=== PATIENT | female | born 1985 | race Caucasian/White ===

== ENCOUNTER → 2017-06-17 15:24 | Outpatient (CLI) | payer OTHER, SELFPAY | PROVIDERS: Visit Provider Otolaryngology Otolaryngology/Facial Plastic Surgery | DX: J02.9 Acute pharyngitis, unspecified (principal); H92.09 Otalgia, unspecified ear | CPT/HCPCS: 87070 ==

== ENCOUNTER → 2017-06-27 16:45 | Outpatient (CLI) | payer OTHER, SELFPAY ==
--- NOTE | 2017-06-27 16:47 | CT_ITS ---
STUDY: CT SOFT TISSUE NECK WITH CONTRAST REASON FOR EXAM: Female, 32 years old. Right ear pain and neck pain. RADIATION DOSAGE (If Supplied By Facility): CTDIvol = ( 11.15 ) mGy, DLP = ( 286.78 ) mGycm TECHNIQUE: The patient was scanned in a multi-detector CT scanner. High resolution transaxial imaging was performed following intravenous administration of 75 ml of Isovue 370 contrast material. Sagittal and coronal images were reconstructed. Individualized dose optimization techniques were used for this CT. COMPARISON: None. FINDINGS: Normal bilateral parotid glands. Normal bilateral switch repairer spaces. Normal bilateral parapharyngeal spaces. Normal bilateral carotid spaces. Normal bilateral sublingual and submandibular glands and spaces. Normal visualized nasopharynx. Normal retropharyngeal space. Normal perivertebral space. Normal visualized bilateral faucial tonsils. The visualized tongue, tongue base and oropharynx are normal. The visualized cervical lymph nodes (levels I-) are within normal size limits, and maintain normal morphology. There is no demonstrated solid or cystic mass lesion. There is no abnormal contrast enhancement. Normal epiglottis, bilateral vallecula and hypopharynx. The pre-epiglottic and paraglottic adipose spaces are normal. Normal visualized bilateral piriform sinuses, aryepiglottic folds, vocal cords, and arytenoid-cricoid articulations. Normal subglottic trachea. Normal bilateral lobes of the thyroid gland. Normal visualized pulmonary apices. Normal visualized paranasal sinuses. Normal visualized cervical spine. CT/Soft Tissue Neck WITH Contrast IMPRESSION: Normal enhanced CT examination of the soft tissues of the neck. Electronically Signed: Jatinder Crooks MD at 23:58 EDT , Service support ,
== END ==
PROVIDERS: Visit Provider Otolaryngology Otolaryngology/Facial Plastic Surgery
DX: M54.2 Cervicalgia (principal); H92.01 Otalgia, right ear
CPT/HCPCS: 70491; 70492; Q9967

== ENCOUNTER 2017-07-25 09:55 | Outpatient (RCR) | payer OTHER, SELFPAY ==
--- NOTE | 2017-08-21 19:47 | HP.PTEVAL_ITS ---
Patient's Visit Information MANUEL RAMOS is a 32 year old F referred to Physical Therapy by JAZZY GOLDSMITH with a diagnosis of Generalized weakness. Date of Evaluation: 07/25/17 Physical Therapist: Adán Zamorano - Visit Plan Frequency: 2x /Week Duration: 4 Weeks Plan: Start with neutral spine core strengthening, hip (glute, glute med, lumbar paraspinals, multifidus) to increase stability with all dynamic activities. - Subjective Subjective: Pt. is here today for her initial evaluation with diagnosis of generalized weakness with fibromyalsis. Pt. reports battling fibromyalsia for 3- 4 years now, but has had increased difficulty since her last child was born. Pt. reports having gereralized pain, througout bilateral LEs and lumbar spine. Pt. reports incerased pain upon waking up in the morning and worsens throughout the day. Pt.denies N/T and no sudden muscle weakness in LEs. Pt. reports no changes in B/B. Pt. has no recent xrays or imaging. Pt. is also having difficulty keeping up with hosehold chores and children due to fatigue. Pt. is hopeful to improve strength in order get back to all recreational and household activities without limitations. - Pain Lumbar spine Pain Intensity (Out of 10): 3 Pain Intensity Range: 1, 6 BLEs Pain Intensity (Out of 10): 2 Pain Intensity Range: 2, 6 Cervical spine Pain Intensity (Out of 10): 2 Pain Intensity Range: 2, 4 - Objective POSTURE: Pt. has rounded shoulders, FH posture, increased lumbar lordosis with anterior rotation pelvis. Increased flexion at CT juntion with increased upper cervical extension. PALPATION: Pt. has increased pain at CT junction, at lumbar spine paraspinals. NO pain througout BLEs with palpation. NEUROLOGICAL: Normal with sensation adn DTR throughout. Pt. myotomal weakness noted. ROM: CERVICAL SPINE: normal ROM, mild increase with ext. lumbar spine: Pt. has full ROM, with hyperextension noted. BLEs- hypermobility noted throughout. MMT: RLE - ankle/knee- 5/5 throughout; hip- flexion 4+/5, abd 4/5, ext 4+/5. LLE- ankle 5 /5 throughout, knee- 5/5 throughout; hip- flexion 4+/5, abd 4/5, ext 4/5. Core strenght- poor+. GAIT: normal pattern noted, STAIRS: normal pattern noted without increase in symptoms. - Goals Goal 1:: Pt. to be I with HEP. Goal Time Frame: 4-6 Weeks Goal 2:: Pt. to have increased BLE and core strength increased by 1/2 grade of all effected musculature. Goal Time Frame: 4-6 Weeks Goal 3:: Pt. to sleep throughout the night without increase in symptoms. Goal Time Frame: 4-6 Weeks Goal 4:: Pt. to resume all household work and recreational activities without increase in symptoms. Goal Time Frame: 4-6 Weeks Goal 5:: Pt. to maintain proper posture throughout therapy session indicating increased postural awareness. Goal Time Frame: 4-6 Weeks - Rehabilitation Potential Physical Therapy Diagnosis: Pt. has sigs and symptoms consistent with BLE, core weakness. Pt. is hypermobile with all BLEs and lumbar spine. Pt. has poor posture, most likely due to muscle/postural/core weakness. Pt. would benefit from PT to increase BLE/core strength to increase posture in all positions, reducing stress applied to lumbar spine/pelvis with all activities. Rehabilitation Potential: Good - Anticipated Interventions Patient/Client Instruction: Educate patient on: Condition, Plan of Care, Risk Factors, Benefits of Fitness Program For the Purpose of:: To foster healthy habits, To improve decision making, To facilitate caregiver knowledge, To improve self management, To prevent re-injury , To improve ability to perform tasks related to life management, To improve tolerance to ADL's Therapeutic Exercise to Include: Strength training, Power training, Body mechanics, Postural training, Active ROM, Dynamic Lumbar Stabilization, Patricia Exercises, Scapular Strength/Stabilization For the Purpose of:: To decrease pain, To increase ROM, To improve nutrient delivery to tissue, To increase oxygenation perfusion, To improve ability of physical actions for home/community/work/leisure, To improve health of tissue, To decrease soft tissue restriction, To increase flexibility/ROM Thank you for the opportunity to evaluate your patient. For Medicare and Medicare HMO plans, please review the plan of care and approve it. It will need to be FAXED BACK to us at [phone] for Medicare purposes. Please let me know if there are questions or concerns regarding this plan of care. Physician Signature: Date:
--- NOTE | 2017-12-15 11:28 | HP.PTDCNRP_ITS ---
HP - Discharge Summary (1) - Patient Information MANUEL RAMOS was seen in my office for initial evaluation on 07/25/17. The following Plan of Care was established for this patient: Initial Frequency: 2x /Week Initial Duration: 4 Weeks - Anticipated Interventions Patient/Client Instruction: Educate patient on: Condition, Plan of Care, Risk Factors, Benefits of Fitness Program For the Purpose of:: To foster healthy habits, To improve decision making, To facilitate caregiver knowledge, To improve self management, To prevent re- injury, To improve ability to perform tasks related to life management, To improve tolerance to ADL's Therapeutic Exercise to Include: Strength training, Power training, Body mechanics, Postural training, Active ROM, Dynamic Lumbar Stabilization, Patricia Exercises, Scapular Strength/Stabilization For the Purpose of:: To decrease pain, To increase ROM, To improve nutrient delivery to tissue, To increase oxygenation perfusion, To improve ability of physical actions for home/community/work/leisure, To improve health of tissue, To decrease soft tissue restriction, To increase flexibility/ROM This patient was last seen in our office 07/25/17. Pertinent comments regarding their Physical therapy will appear below: Pt. was treated for her generalized weakness and fibromyalsia. She was seen for her initial evaluation and given exercises for core/hip stability. Pt. did not attend any future visits. She has not been seen in ~4 months and will be DC from PT at this point in time. At this point I will be discontinuing this patient from physical therapy. I would be happy to see this patient again in the future if found appropriate by the physician. Thank you! Adán Zamorano
== END 2017-07-25 19:00 | disposition home or self-care (01) ==
LOC: PT 09:55
DX: R53.1 Weakness (principal)
CPT/HCPCS: 97162

== ENCOUNTER 2017-10-14 04:28 | Emergency (ER) | payer OTHER, SELFPAY ==
[2017-10-14 04:31] VITALS: BP 164/124; PULSE 96; RESP 20; TEMP 36.6; O2SAT 100; BMI 19.3
--- NOTE | 2017-10-14 05:03 | CT_ITS ---
STUDY: CT ABDOMEN AND PELVIS WITHOUT CONTRAST REASON FOR EXAM: Female, 32 years old. Left flank pain x2 days, worse tonight, nausea. History of kidney stones. RADIATION DOSAGE (If Supplied By Facility): CTDIvol = ( 6.17 ) mGy, DLP = ( 280.50 ) mGycm TECHNIQUE: Transaxial 2.5 mm images were obtained from the dome of the diaphragm to the symphysis pubis without oral contrast, and without intravenous contrast. Sagittal and coronal images were reconstructed. This examination is limited for the evaluation of gastrointestinal, solid organs and vascular structures due to the lack of intravenous and oral contrast. Individualized dose optimization techniques were used for this CT. COMPARISON: CT abdomen pelvis 08/27/2014. FINDINGS: The visualized lung bases are unremarkable. The visualized portions of the heart are within normal limits. Normal liver. Normal gallbladder and extrahepatic biliary system. Normal spleen. Normal pancreas. Normal bilateral adrenal glands. Normal right kidney. Left nephromegaly with mild to moderate left hydronephrosis and hydroureter to the level just proximal of the left UVJ with an 3 mm obstructing left UVJ calculus image 133 series 2 and a 3 x 4 mm calculus at the UVJ. Stable cluster off calcification in the left inferior renal pole. Normal visualized stomach. Normal small intestine. Normal colon. The appendix is visualized and appears normal. Normal abdominal aorta. Normal inferior vena cava. Normal retroperitoneum. Normal urinary bladder. The uterus is age appropriate. Normal abdominal wall. Normal osseous structures. CT/Abdomen/Pelvis without Cont IMPRESSION: [id number] left hydronephrosis with 2 distal left small ureteral calculi one at, the second one just proximal to the UVJ. Cluster of calcification in the left inferior renal pole without significant change. Electronically Signed: Sugar Torres MD at 6:57 EDT , Service support ,
--- NOTE | 2017-10-14 05:06 | ED.VISSUMM ---
- ER Visit Summary Date of Service: 10/14/17 Chief Complaint: Left flank pain History of Present Illness: The patient is a 32 F who presents with left flank pain that began a couple days ago. Patient states that the pain became sharp and severe tonight. Patient states the pain woke her up out of her sleep. Patient states the pain is over the left flank and radiates into her left inguinal area. Patient admits to some nausea and vomiting. Patient states she had one episode of emesis tonight. Patient denies any hematemesis or coffee-ground emesis. Patient denies any diarrhea. Patient denies any dysuria or hematuria. Patient states her last menstrual period was 09/20/2017. Patient denies any abnormal vaginal bleeding or discharge. Patient states she does have a history of kidney stones. Patient states this pain feels similar but worse than prior episodes. Physical Examination: Vital signs are stable. Patient is afebrile. Patient is in no acute distress. Oral mucosa is pink and moist. Neck is supple. Trachea is midline. There is no JVD or lymphadenopathy. Heart was regular rate and rhythm. Lungs are clear and equal bilaterally. Abdomen is soft. Bowel sounds are normal. There is left upper and left lower quadrant tenderness. There is no rebound or guarding noted. Cranial nerves II through XII are intact. There are no focal motor or sensory deficits noted. The remaining physical exam is within normal limits. Test Results: CT scan of the abdomen and pelvis shows mild to moderate left hydronephrosis with 2 distal left small ureteral calculi at the UVJ. CBC, basic metabolic profile, urinalysis, and urine hCG were all within normal limits. Emergency Department Course and Treatment: Patient was given IV fluids, Toradol, Zofran, and morphine here. Patient felt better on reevaluation. Patient was instructed to drink plenty of fluids. Patient was given a prescription for a short course of Trafford. Patient was instructed to follow-up with her primary care physician or urologist in 5-7 days. Patient understood and was agreeable with the plan. All questions were answered. Disposition: Discharged home Impression: Left ureteral calculus This note was generated with [employer] dictation software. It may contain incorrect words, spelling, and punctuation that were not noted in review of the chart prior to signing ED Disposition - Plan for ED Patient: Disposition: Home or Assisted Living Chief Complaint: Flank Pain Diagnosis: Left ureteral calculus Instructions: ED Stone Renal W Colic Prescriptions: Hydrocodone Bitart/Apap 5-325 [Trafford 5MG-325MG] 1 tab PO Q6H PRN PRN 3 Days #12 tab PRN Reason: Pain Referrals: Isabella Finn PA [Primary Care Provider] -
[2017-10-14 05:11] LABS: Mucous, Urine 0 SEEN /hpf (<or=2+)
[2017-10-14 05:14] LABS: Absolute Lymphocyte Count 3.27 X10^3/ul (0.83-4.51); Absolute Neutrophil Count 3.2 X10^3/uL (2.0-7.7); Basophil# 0.01 X10^3/uL; Basophil% 0.1 % (0-1); Eosinophil# 0.09 X10^3/uL; Eosinophils% 1.3 % (0-5); Hematocrit 39.9 % (37-47); Hemoglobin 13.3 g/dl (12.0-15.0); Lymphocyte # 3.27 X10^3/ul (4.0); Lymphocyte % 47.5 % (19-41); Mean Corp Hgb Conc 33.3 g/gl (32-36); Mean Corpuscular Hgb 30.6 pg (27.0-32.0); Mean Corpuscular Volume 91.9 fL (81-99); Mean Platelet Vol. 9.9 fl (6.2-12.0); Monocyte# 0.35 X10^3/uL; Monocyte% 5.1 % (0-10); Neutrophil # 3.15 X10^3/uL (2.7-7.7); Neutrophil % 45.9 % (47-70); Platelet Count 187 K/mm3 (150-450); RBC Distribution Width SD 40.7 fl (35.1-43.9); Red Blood Count 4.34 M/mm3 (4.2-5.4); White Blood Count 6.9 K/mm3 (4.4-11.0)
[2017-10-14] MEDS: Ketorolac 30 MG/ML Syringe IV (05:14)
[2017-10-14] MEDS: Ondansetron 4 MG/2 ML Vial IV (05:14)
[2017-10-14 05:15] LABS: POSITIVE COUNT NO; POSITIVE DIFFERENTIAL NO; POSITIVE MORPHOLOGY NO
[2017-10-14 05:24] LABS: Color, Urine Yellow (Yellow); Glucose, Dipstick Normal (Normal); Ketone-Dipstick Negative (Negative); Leukocyte Esterase-Dipstick 25 /ul (Negative); Nitrite-Dipstick Negative (Negative); Occult Blood-Urine 10 /ul (Negative); Protein-Dipstick 15 mg/dl (Negative); Urine Bilirubin Dipstick Negative (Negative); Urine Clarity Sl. Cloudy (Clear); Urine Urobilinogen Normal (Normal)
[2017-10-14 05:31] LABS: Anion Gap 11 (5-15); BUN 13 mg/dL (7-18); BUN/Creat Ratio 18.7 RATIO (10-20); Calcium,Total 9.3 mg/dL (8.5-10.1); Chloride 105 mmol/L (98-107); EST Glomerular Filtration Rate 105 mL/min (>60); Est Glom Filt Rate - Afr Amer 127 mL/min (>60); Estimated Creatinine Clearance 107.04 ml/min; Glucose 97 mg/dL (74-106); Potassium 3.8 mmol/L (3.5-5.1); Sodium Level 141 mmol/L (136-145)
[2017-10-14 05:32] LABS: Bacteria RARE /hpf (None Seen); Red Blood Cells-Urine 0 SEEN /hpf (0-5); Squamous Epithelial Cells - UA 0-5 SEEN /hpf (5-10); White Blood Cells 0-5 SEEN /hpf (0-5)
[2017-10-14 05:56] LABS: Pregnancy, Serum, hCG Quali. NEGATIVE Negative (0-9 Nonpreg)
[2017-10-14 06:50] VITALS: BP 156/78; PULSE 91; RESP 18; O2SAT 100
[2017-10-14] MEDS: Morphine 4 MG/ML Syringe IV (06:59)
[2017-10-14 07:27] VITALS: BP 121/78; PULSE 62; RESP 16; O2SAT 98
== END 2017-10-14 07:40 | disposition home or self-care (01) ==
PROVIDERS: Emergency Provider Emergency Medicine; Family Provider Physician Assistant; PCP Physician Assistant
DX: N13.2 Hydronephrosis with renal and ureteral calculous obstruction (principal); Z87.442 Personal history of urinary calculi
CPT/HCPCS: 74176; 80048; 81001; 84703; 85025; 96374; 96375; 99284; J7030; A4216; J2405

== ENCOUNTER → 2017-10-19 13:16 | Outpatient (CLI) | payer OTHER, SELFPAY ==
--- NOTE | 2017-10-19 13:30 | SP.MBSS_ITS ---
PRIMARY / SECONDARY DIAGNOSIS: dysphagia (R13.10) REFERRING PHYSICIAN: Beltran Finn PA-C CURRENT DIET: regular textures, thin liquids DENTITION: WFL MENTAL STATUS: WNL RESPIRATORY STATUS: O2 via room air PREVIOUS MODIFIED BARIUM SWALLOW STUDY: none REASON FOR REFERRAL: Patient is a 32 year old female referred for a modified barium swallow (MBS) study to objectively assess the Patients oropharyngeal swallow function under fluoroscopy secondary to concerns for PO intolerance associated with a right sided thyroid goiter. Patient reports persistent globus sensation with intermittent throat clearing both with and without intake, denies odynophagia, denies recent weight loss or changes in intake patterns, denies any recent aspiration related pulmonary complications. ADDITIONAL OBJECTIVE ASSESSMENT RESULTS: 06/27/2017 CT soft tissue neck revealed a normal enhanced CT examination of the soft tissues of the neck. MEDICAL HISTORY: Kidney stones, prior tonsillectomy, arthritis (self-reported). STUDY FINDINGS: Patient participated in a Modified Barium Swallow (MBS) study on 10/19/2017. Dr. Naranjo was the radiologist present for this evaluation. This study was recorded in the lateral view and images were sent to PACs for storage. The following consistencies were presented to this patient for analysis of oropharyngeal swallow function: thin liquids, pudding, and a regular textured, Amira Doone cookie. Results of the MBS are as follows: PENETRATION / ASPIRATION SCALE (MATTSON): 1 = does not enter airway 2 = enters airway/above vocal folds/ejected 3 = enters airway/above vocal folds/not ejected 4 = enters airway/contacts vocal folds/ejected 5 = enters airway/contacts vocal folds/not ejected 6 = enters airway/below vocal folds/ejected 7 = enters airway/below vocal folds/not ejected despite effort 8 = enters airway/below vocal folds/no effort PENETRATION / ASPIRATION SCALE (SCORE): Thin liquid - 5 mL tsp.: 1 Thin liquids via cup (single sip): 1 Thin liquids via cup (single sip): 1 Thin liquids via cup (single sip): 1 Thin liquids via cup (sequential swallows): 1 Pudding via spoon: 1 Regular textured cookie: 1 Thin liquids via straw (sequential swallows): 1 IMPRESSION: DIAGNOSIS: within functional limits ORAL PHASE CHARACTERIZED BY: LABIAL SEAL: no labial escape TONGUE CONTROL DURING BOLUS MANIPULATION: cohesive bolus between tongue to palatal seal BOLUS PREPARATION / MASTICATION: timely and efficient chewing and mashing BOLUS TRANSPORT / LINGUAL MOTION: brisk tongue motion ORAL RESIDUE: trace residue lining oral structures PHARYNGEAL PHASE CHARACTERIZED BY: INITIATION OF PHARYNGEAL SWALLOW: intermittent bolus head at posterior laryngeal surface of epiglottis at first hyoid excursion SOFT PALATE ELEVATION: no bolus between soft palate and pharyngeal wall LARYNGEAL ELEVATION: complete and at times premature superior movement of thyroid cartilage with complete approximation of arytenoids cartilage to epiglottic petiole ANTERIOR HYOID EXCURSION: partial anterior movement EPIGLOTTIC MOVEMENT: complete epiglottic inversion LARYNGEAL VESTIBULE CLOSURE AT HEIGHT OF SWALLOW: complete laryngeal vestibule closure with no air/contrast in laryngeal vestibule PHARYNGEAL STRIPPING WAVE: pharyngeal stripping wave present / complete PHARYNGOESOPHAGEAL SEGMENT OPENING: complete distension and complete duration with no obstruction of flow TONGUE BASE RETRACTION: no contrast between tongue base and posterior pharyngeal wall PHARYNGEAL RESIDUE: trace residue within or on pharyngeal structures ESOPHAGEAL PHASE CHARACTERIZED BY: ESOPHAGEAL BOLUS CLEARANCE IN THE UPRIGHT POSITION: complete clearance; esophageal coating DIET TEXTURE RECOMMENDATIONS: Will recommend a regular textured, thin liquid diet. COMPENSATORY STRATEGIES RECOMMENDED: Reduced bolus volume (reasonably reduced), seated upright at 90 degrees during PO intake, remain upright for 30-60 minutes post meal (GERD precaution) INTERPRETATION OF RESULTS: The Patient presents with mastication and deglutition abilities found to be grossly within functional limits. Mild reductions in laryngeal elevation and intermittent suboptimal bolus location upon swallow onset demonstrating no impact on the integrity of the airway. Presence and location of the thyroid goiter may attribute to reported right sided globus sensation post deglutition dependent on exact location (difficult to exactly identify with palpation; not visible under fluoroscopy as expected). No aspiration appreciated throughout consistencies trialed. RECOMMENDATIONS: Patient able to comprehend and express recommended intake precautions detailed above with sufficient detail to suggest high likelihood of compliance. Provided brief overview of signs and symptoms of aspiration, with recommendations for the Patient to further discuss symptoms with PCP. No further skilled speech- language services warranted at this time targeting dysphagia. ADDITIONAL COMMENTS/RECOMMENDATIONS: Results and recommendations were discussed with the Patient immediately following MBS completion, with the Patient verbalizing understanding and agreement with all recommendations and education provided. IMAGE COUNT: [id number] G-CODES: SWALLOWING G8996 Current Status: SWALLOWING G8997 Goal Status: SWALLOWING G8998 Discharge Status: Christo Parmar M.A., CCC-ANIMAL ANATOMY TEACHER [facility] Speech-Language Pathology Department [email or web address]
== END ==
PROVIDERS: Family Provider Physician Assistant; PCP Physician Assistant; Visit Provider Physician Assistant
DX: R13.10 Dysphagia, unspecified (principal)
CPT/HCPCS: 74230; 92611

== ENCOUNTER → 2017-11-09 08:56 | Outpatient (CLI) | payer OTHER, SELFPAY ==
[2017-11-16 12:11] LABS: HPV Reflexed? NOT INDICATED
== END ==
PROVIDERS: Family Provider Physician Assistant; PCP Physician Assistant; Visit Provider Obstetrics & Gynecology
DX: Z12.4 Encounter for screening for malignant neoplasm of cervix (principal)
CPT/HCPCS: 88175; G0145

== ENCOUNTER → 2018-07-20 15:15 | Outpatient (CLI) | payer OTHER, SELFPAY ==
[2018-07-20 17:30] LABS: Absolute Lymphocyte Count 2.11 X10^3/ul (0.83-4.51); Absolute Neutrophil Count 3.6 X10^3/uL (2.0-7.7); Basophil# 0.01 X10^3/uL; Basophil% 0.2 % (0-1); Eosinophil# 0.08 X10^3/uL; Eosinophils% 1.3 % (0-5); Hematocrit 40.6 % (37-47); Hemoglobin 13.6 g/dl (12.0-15.0); Lymphocyte # 2.11 X10^3/ul (4.0); Lymphocyte % 34.2 % (19-41); Mean Corp Hgb Conc 33.5 g/gl (32-36); Mean Corpuscular Hgb 31.1 pg (27.0-32.0); Mean Corpuscular Volume 92.7 fL (81-99); Mean Platelet Vol. 9.9 fl (6.2-12.0); Monocyte# 0.34 X10^3/uL; Monocyte% 5.5 % (0-10); Neutrophil # 3.63 X10^3/uL (2.7-7.7); Neutrophil % 58.8 % (47-70); Platelet Count 192 K/mm3 (150-450); RBC Distribution Width CV 12.4 % (11.6-14.6); RBC Distribution Width SD 42.2 fl (35.1-43.9); Red Blood Count 4.38 M/mm3 (4.2-5.4); White Blood Count 6.2 K/mm3 (4.4-11.0)
[2018-07-20 17:36] LABS: POSITIVE COUNT NO; POSITIVE DIFFERENTIAL NO; POSITIVE MORPHOLOGY NO
[2018-07-20 17:48] LABS: Erythrocyte Sedimentation Rate 2 mm/hr (0-20)
[2018-07-20 18:14] LABS: CRP < 2.90 mg/L (0.0-3.0); Rheumatoid Factor < 10.0 IU/mL (<15); Uric Acid 3.7 mg/dL (2.6-6.0)
[2018-07-22 16:06] LABS: Dilute Russell Viper Venom 36.6 sec (0.0-47.0); PTT-LA 33.2 sec (0.0-51.9); Thrombin Time 17.5 sec (0.0-23.0); dPT Confirm Ratio 1.19 Ratio (0.00-1.40)
[2018-07-23 10:20] LABS: Interpretation Comment: (.)
[2018-07-24 14:20] LABS: ANTINUCLEAR ANTIBODIES DIRECT Negative (Negative)
== END ==
PROVIDERS: Family Provider Physician Assistant; PCP Physician Assistant; Referring Provider Orthopaedic Surgery; Visit Provider Orthopaedic Surgery
DX: M54.12 Radiculopathy, cervical region (principal)
CPT/HCPCS: 36415; 84550; 85025; 85652; 86038; 86140; 86431

== ENCOUNTER → 2020-02-04 14:30 | Outpatient (CLI) | payer OTHER, SELFPAY ==
[2020-02-07 22:06] LABS: HPV Reflexed? NOT INDICATED
== END ==
PROVIDERS: PCP Physician Assistant; Visit Provider Obstetrics & Gynecology
DX: Z12.4 Encounter for screening for malignant neoplasm of cervix (principal)
CPT/HCPCS: 88175; G0145

== ENCOUNTER → 2020-06-11 09:22 | Outpatient (CLI) | payer OTHER, SELFPAY ==
--- NOTE | 2020-06-11 09:30 | ASPOS_PTH ---
PATIENT: MANUEL RAMOS LOC: LAB U#:[id number] AGE/SX: 39/F ROOM: RE06/11/[address]: Dr. 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 AM:humera 06/12/2020 COMMENT The specimen is evaluated at the time of FNA by Dr. Solomon. 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 Case has been reviewed in consultation with Dr. England who concurs with the above diagnosis. IDC:SJ CYTOLOGY STUDY Slides are reviewed. CYTOLOGY GROSS Received is 0.25 ml of reddish-workman material labeled with the patient's name, and designated right neck mass. Four imprints and one pap are made from the submitted fluid and the rest is added to CytoLyt for cell block preparation. Submitted for cytology study. / AM:humera 06/11/2020 TC:5 CPT: 05220, 50596, 51530, 85775
== END ==
PROVIDERS: PCP Physician Assistant; Referring Provider Otolaryngology; Visit Provider Otolaryngology
DX: R22.1 Localized swelling, mass and lump, neck (principal)
CPT/HCPCS: 10021; 88161; 88305

== ENCOUNTER 2020-08-26 05:58 | Day surgery (SDC) | payer OTHER, SELFPAY ==
[2020-08-26] VITALS (8 sets, daily range): BP systolic 107–115; BP diastolic 69–78; PULSE 67–81; RESP 16–18; TEMP 36.1–37.2; O2SAT 99–100; BMI 19.9
[2020-08-26 06:34] LABS: Internal QC Validated? YES +Cl - CLEAR BKGD
[2020-08-26 06:35] LABS: Pregnancy, Urine Negative Negative
[2020-08-26 07:04] LABS: Hematocrit 36.9 % (37-47); Hemoglobin 12.3 g/dL (12.0-15.0); Mean Corp Hgb Conc 33.3 g/dL (32-36); Mean Corpuscular Hgb 31.1 pg (27.0-32.0); Mean Corpuscular Volume 93.2 fL (81-99); Mean Platelet Vol. 9.5 fl (6.2-12.0); Platelet Count 161 K/mm3 (150-450); RBC Distribution Width CV 11.8 % (11.6-14.6); Red Blood Count 3.96 M/mm3 (4.2-5.4); White Blood Count 4.8 K/mm3 (4.4-11.0)
[2020-08-26] MEDS: Lactated Ringers 1,000 ML 100 ML IV (07:05)
[2020-08-26 07:15] LABS: Partial Thromboplast Time 29.8 Seconds (24.1-36.2)
[2020-08-26 07:20] LABS: AST(SGOT) 6 U/L (15-37); Alanine Aminotransfer ALT/SGPT 13 U/L (13-56); Albumin, Serum 3.6 g/dL (3.2-5.0); Alkaline Phosphatase 76 U/L (45-117); Bilirubin, Direct 0.21 mg/dL (0.00-0.30); Globulin 3.3 g/dL (2.2-4.2); Protein, Total 6.9 g/dL (6.4-8.2)
--- NOTE | 2020-08-26 07:30 | PAR_PTH ---
PATIENT: MANUEL RAMOS LOC: [facility] U#:[id number] AGE/SX: 35/F ROOM: RE08/26/[address]: Dr. Victorino Bello MD : 1985 BED: DIS: 08/26/2020 SPEC #: [id number] RECD: 08/26/20 14:37 STATUS: BENJAMIN REAndre #: [id number] BRIDGET: 08/26/20 07:[address]: Victorino Bello DEPT: SURGICAL PATHOLOGY RECD BY: Soraya Mckeon ENTERED: 08/27/20 07:18 SP TYPE: PAROTID OTHR DR: PERRY Weber Tissues: Parotid gland, NOS Procedures: Surgery Specimen Level IV HEADER OPERATION: Superficial parotidectomy, superficial muscular aponeurotic PRE-OP DIAGNOSIS: Localized swelling, mass and lump neck TISSUE SUBMITTED: Right parotid mass MICROSCOPIC DIAGNOSIS Right parotid mass, superficial parotidectomy: Pleomorphic adenoma. Periparotid lymph nodes with reactive changes. YUKI:humera 08/28/2020 COMMENT Please make reference to previous specimen ([id number]), fine needle aspiration, right upper neck mass with diagnosis of ?pleomorphic adenoma.? MICROSCOPIC DESCRIPTION Slides are reviewed. GROSS DESCRIPTION Received in fixative is one container labeled with the patient's name and designated right parotid mass. The specimen consists of a congested piece of glandular tissue weighing 1.9 gm and measuring 2 x 1.6 x 1 cm. The specimen is inked, serially sectioned and reveal workman nodular masses with focal hemorrhagic area measuring 0.4 x 0.3 x 0.3 cm. The entire specimen is submitted in two cassettes. / YUKI:humera 08/27/20 TC:1 CPT: 58636
[2020-08-26] MEDS: Lidocaine 1% /Epi 1:100 (20ml) 20 ML Vial (07:50)
[2020-08-26] MEDS: Mupirocin Ointment 22gm Tube 1 APPLIC (11:26)
--- NOTE | 2020-08-26 13:05 | OP.PCM_ITS ---
Problems Associated Problem List Diagnoses (1) Mass of parotid gland: Report of Operation Date of Procedure: 08/26/20 Pre-Operative Diagnosis: right parotid mass Post-Operative Diagnosis: right parotid mass Surgery/Procedure Performed:: right superficial parotidectomy Surgeon: Papi Bello Type of Anesthesia: General/Regional Specimen's removed: right parotid mass Drains: kiarra camp Description of Procedure: on the day of the procedure, after appropriate informed consent was obtained, the patient was brought to the operating room and placed in supine position on the operating table. she was placed under general endotracheal anesthesia by the anesthesiologist. facial nerve electrodes were placed on the right side. the face was prepped and draped in sterile fashion, including the left lower quadrant. a modified kya incision was outlined on the right side and injected with lidocaine / epinephrine. an incision was made with a 15 blade. a subcutaneous fat plane was dissected anterior to the preauricular incision with metzenbaum scissor. the superficial muscu loaponeurotic system was incised with a 15 blade in the preauricular area and the parotid/masseteric fascia was exposed. the SMAS was isolated and a flap was created. this was continuous with the platysma. the inferior portion of the parotid was dissected off of the anterior border of the sternocleidomastoid muscle. the tragal pointer was dissected in a supraperichondrial plane. 1cm inferior and deep to the pointer the facial nerve main trunk was located. this was confirmed by stimulation. given the location of the tumor, the superior division was located and preserved. the inferior division and its branches were dissected. the inferior superficial lobe was removed with a cuff of normal tissue around the tumor. after tumor removal, the main trunk was stimulated and all branches were intact. a 15 blade was used to make a 3cm incision in the left lower quadrant. a 2x3cm fat graft was removed with a metzenbaum scissor and an allis. hemostasis was observed, a pradeep was placed, and the incision was closed with 4-0 vicryl and 4-0 maxon. the fat graft was trimmed and placed into the defect. this was tacked into place using 4-0 vicryl. the SMAS flap was closed with 4-0 vicryl over the flap. a SYDNEE drain was placed. the kya incision was closed with 4-0 vicryl and 5-0 nylon. she was extubated uneventfully and transferred to the PACU in stable condition with full right sided facial function.
--- NOTE | 2020-08-26 13:30 | PCM.DC ---
Discharge Instructions Diet Discharge Diet: No restrictions Activity May shower in (days): 1 Dressing / Incision Call your doctor if your incision/area has: Foul Smelling Discharge Additional Dressing/Incision Instructions:: elevate head of bed. wear the abdominal binder. mupirocin to incision BID. record SYDNEE output. Follow Up Care Please Follow Up With: Papi Bello MD When: tomorrow, as scheduled Test Results: Test results from this visit will be discussed in further detail at your follow-up appointment, if applicable. Discharge Plan Admission Attending Provider: Papi Bello Primary Care Provider: Isabella Finn Discharge Orders/Prescriptions Prescriptions: No Action multivitamin [Multiple Vitamins] 1 EACH tablet 1 ea PO DAILY RF: 0 acetaminophen [Tylenol] 325 mg Tablet 650 mg PO Q4H PRN (Reason: Pain) RF: 0 Probiotic 3 billion cell Capsule 3,000 mmu cells PO DAILY RF: 0 Disposition Discharge Orders: Discharge Patient (Routine); Ordered 08/26/20 Ordered By: Dr. Papi Bello
[2020-08-26] MEDS: HYDROcodone Bitartrate/Apap 5/325 Tablet PO (15:10)
== END 2020-08-26 15:49 | disposition home or self-care (01) ==
LOC: SDC 05:59 → AC 05:59
PROVIDERS: Anesthesiology; PCP Physician Assistant; Referring Provider Otolaryngology; Visit Provider Otolaryngology
PROC: (CPT 42415; principal; 2020-08-26 07:00)
DX: D11.0 Benign neoplasm of parotid gland (principal)
CPT/HCPCS: 42415; 80076; 81025; 85027; 85610; 85730; 88305; J7120; J2405

== ENCOUNTER → 2022-09-24 | Outpatient (CLI) | payer OTHER, SELFPAY ==
[2022-10-01 10:09] LABS: HPV APTIMA, High Risk Negative (Negative)
== END | disposition home or self-care (01) ==
LOC: OPBI 17:11
PROVIDERS: PCP Physician Assistant; Referring Provider Obstetrics & Gynecology; Visit Provider Obstetrics & Gynecology
DX: Z12.4 Encounter for screening for malignant neoplasm of cervix (principal)
CPT/HCPCS: 87624; 88175; G0145

== ENCOUNTER → 2022-10-08 | Outpatient (CLI) | payer OTHER, SELFPAY ==
--- NOTE | 2022-10-08 08:50 | BI_ITS ---
MAMMOGRAPHY - BILATERAL DIAGNOSTIC REASON FOR EXAM: Female, 37 years old. Bilateral breast pain. PERTINENT HISTORY: Aunt with breast cancer. TECHNIQUE: Digital bilateral breast sarah (3D mammographic acquisition) in the CC and MLO projections. 2-D mediolateral oblique (MLO) and craniocaudad (CC) views of both breasts were obtained. CAD: Full Field Digital Mammography with Computer Added Detection was performed. COMPARISON: None. Baseline examination. FINDINGS: Breast Composition: The breasts are extremely dense, which lowers the sensitivity of mammography. There are no dominant masses or suspicious calcifications. No other significant abnormalities are identified. BI/DIAG MAMM W/CAD, UNILAT IMPRESSION: Negative diagnostic mammogram. With the patient''s history of bilateral breast pain, targeted ultrasound correlation is recommended. ASSESSMENT CATEGORY: BIRADS Category 0: Incomplete. Need additional imaging evaluation. A letter regarding these results will be sent to the patient by the facility within 30 days. Approximately 10% of breast cancers are not detected by mammography. A normal mammogram should not delay biopsy of a clinically suspicious abnormality. Electronically Signed: Lamin Naranjo MD at 10:24 EDT ,
--- NOTE | 2022-10-08 09:38 | US_ITS ---
STUDY: ULTRASOUND BREAST - RIGHT REASON FOR EXAM: Female, 37 years old. Pain in the right breast. TECHNIQUE: Axial and longitudinal images of the RIGHT breast were performed with a high resolution ultrasound transducer. # OF IMAGES: 58 COMPARISON: Comparison is made with prior mammogram done earlier in the day. FINDINGS: RIGHT Breast: The inferior half of the right breast was examined with ultrasound. There is dense fibroglandular tissue. No sonographic abnormality is seen. IMPRESSION: No sonographic abnormality is seen. ASSESSMENT CATEGORY: BIRADS Category 1: Negative. A letter regarding these results will be sent to the patient by the facility within 30 days. Electronically Signed: Lamin Naranjo MD at 10:52 EDT , STUDY: ULTRASOUND BREAST - LEFT REASON FOR EXAM: Female, 37 years old. Pain in the left breast. TECHNIQUE: Axial and longitudinal images of the LEFT breast were performed with a high resolution ultrasound transducer. # OF IMAGES: 58 COMPARISON: Comparison is made with prior mammogram done earlier in the day. FINDINGS: LEFT Breast: The lateral half of the left breast was examined with ultrasound. There is dense fibroglandular tissue. No sonographic abnormality is seen. US/Breast Limited Unilateral IMPRESSION: No sonographic abnormality is seen. ASSESSMENT CATEGORY: BIRADS Category 1: Negative. A letter regarding these results will be sent to the patient by the facility within 30 days. Electronically Signed: Lamin Naranjo MD at 10:53 EDT ,
== END | disposition home or self-care (01) ==
PROVIDERS: PCP Physician Assistant; Referring Provider Obstetrics & Gynecology; Visit Provider Obstetrics & Gynecology
DX: N64.4 Mastodynia (principal)
CPT/HCPCS: 76642; 77062; 77065; G0279

== ENCOUNTER 2022-10-27 17:29 | Emergency (ER) | payer OTHER, SELFPAY ==
[2022-10-27 17:30] VITALS: BP 167/96; PULSE 78; RESP 18; TEMP 36.1; O2SAT 100; BMI 20.9
[2022-10-27] MEDS: Ondansetron 4 MG/2 ML Vial IV (18:19)
[2022-10-27] MEDS: Ketorolac 15 MG/ML Vial IV (18:19)
[2022-10-27] MEDS: 0.9% Normal Saline 1,000 ML 1000 ML IV (18:19)
[2022-10-27 18:20] LABS: Absolute Lymphocyte Count 1.87 X10^3/uL (0.83-4.51); Absolute Neutrophil Count 3.4 X10^3/uL (2.0-7.7); Basophil# 0.01 X10^3/uL; Basophil% 0.2 % (0-1); Eosinophil# 0.06 X10^3/uL; Eosinophils% 1.1 % (0-5); Hematocrit 39.1 % (37-47); Hemoglobin 13.7 g/dL (12.0-15.0); Lymphocyte # 1.87 X10^3/ul (0.83-4.51); Lymphocyte % 32.8 % (19-41); Mean Corpuscular Hgb 32.2 pg (27.0-32.0); Mean Platelet Vol. 9.6 fl (6.2-12.0); Monocyte# 0.35 X10^3/uL; Monocyte% 6.1 % (0-10); NRBC Flagged by Analyzer 0 % (0-5); Neutrophil # 3.39 X10^3/uL (2.7-7.7); Neutrophil % 59.4 % (47-70); Platelet Count 170 K/mm3 (150-450); RBC Distribution Width CV 11.9 % (11.6-14.6); RBC Distribution Width SD 40.4 fl (35.1-43.9); Red Blood Count 4.25 M/mm3 (4.2-5.4); White Blood Count 5.7 K/mm3 (4.4-11.0)
[2022-10-27 18:29] LABS: ALB/GLOB Ratio 1.2 RATIO (0.9-2.4); AST(SGOT) 15 U/L (15-37); Alanine Aminotransfer ALT/SGPT 21 U/L (13-56); Albumin, Serum 4.1 g/dL (3.2-5.0); Alkaline Phosphatase 90 U/L (45-117); Anion Gap 7 (5-15); BUN 8 mg/dL (7-18); Calcium,Total 9.4 mg/dL (8.5-10.1); Chloride 105 mmol/L (98-107); Creatinine, Serum 0.61 mg/dL (0.55-1.02); EST Glomerular Filtration Rate 117 mL/min (>60); Est Glom Filt Rate - Afr Amer 142 mL/min (>60); Globulin 3.5 g/dL (2.2-4.2); Glucose 92 mg/dL (74-106); Lipase 42 U/L (13-75); Potassium 3.6 mmol/L (3.5-5.1); Protein, Total 7.6 g/dL (6.4-8.2); Sodium Level 139 mmol/L (136-145)
[2022-10-27 18:31] LABS: Bacteria 0 SEEN /hpf (None Seen); Color, Urine Yellow (Yellow); Glucose, Dipstick Normal (Normal); Ketone-Dipstick Negative (Negative); Leukocyte Esterase-Dipstick Negative /ul (Negative); Mucous, Urine 0 SEEN /hpf (<or=2+); Nitrite-Dipstick Negative (Negative); Occult Blood-Urine Negative /ul (Negative); Protein-Dipstick Negative (Negative); Red Blood Cells-Urine 0 SEEN /hpf (0-5); Urine Bilirubin Dipstick Negative (Negative); Urine Clarity Clear (Clear); Urine Urobilinogen Normal (Normal); White Blood Cells 0 SEEN /hpf (0-5)
[2022-10-27 18:37] LABS: Internal QC Validated? YES +Cl - CLEAR BKGD; Pregnancy, Urine Negative Negative; Squamous Epithelial Cells - UA 0-5 SEEN /hpf (5-10)
--- NOTE | 2022-10-27 19:14 | ED.VIS.GI ---
HPI HPI - GI History of Present Illness Chief Complaint: Abd Pain Narrative Narrative: 37-year-old female presenting with diarrhea x6 days. She states that now she has some right lower quadrant pain/right flank pain. She states the pain, fever, chills started yesterday. Patient denies nausea or vomiting. Patient denies dysuria or hematuria. Denies previous abdominal surgeries. Not concern for . She was seen by urgent care who recommended she come to the ER because they were concerned she might have appendicitis. PFSH PFSH Medical History Alcohol use Anxiety Arthritis Depression Difficulty swallowing Easy bruising History of edema History of fibromyalgia History of pain when walking Non-smoker Restless legs Substance abuse Wears glasses Home Medications multivitamin (Multiple Vitamins tablet) 1 ea PO DAILY 10/14/17 [History Last Taken Unknown] lactobacillus combination no.4 3 billion cell capsule (Probiotic) 3,000 mmu cells PO DAILY 08/20/20 [History Last Taken Unknown] ondansetron 4 mg disintegrating tablet 4 mg PO Q8H PRN PRN Nausea #14 tabs 10/27/22 [Rx Last Taken Unknown] Allergy/AdvReac Type Severity Reaction Status Date / Time Penicillins Allergy Hives Verified 10/27/22 17:31 Surgical History History of tonsillectomy and adenoidectomy Hx of hernia repair Hx of wisdom tooth extraction Social History number of children: 2 current occupational status: employed current occupation: Owns a salon Smoking Status: Never smoker alcohol intake: current alcohol intake frequency: holidays/special occasions only substance use type: does not use seatbelt use: always do you feel safe at home: Yes additional social history: - Micheal- Owns [employer] ROS ROS ED Constitutional Constitutional ED: Reports chills and fever(s); Denies sweats Eyes Eyes: Denies blurry vision or change in vision ENT ENT ED: Denies ear pain or sore throat Cardiovascular Cardiovascular: Denies chest pain, palpitations or racing heartbeat Respiratory/Chest Respiratory/Chest: Denies cough, dyspnea or sputum Gastrointestinal Gastrointestinal: Reports abdominal pain, nausea and vomiting; Denies constipation or diarrhea Genitourinary Genitourinary ED: Denies dysuria, hematuria or urinary frequency Musculoskeletal Musculoskeletal: Reports myalgias; Denies arthralgias or neck pain Integumentary Denies abscess, Abrasions or rash Neurologic Neurologic: Denies headache(s), paresthesias or weakness Psychiatric Psychiatric: Denies anxiety, depression, suicidal ideation or suicidal thoughts Endocrine Endocrinology: Denies polydipsia or polyuria EXAM Physical Exam Const Vital Signs: 10/27/22 17:30 10/27/22 20:45 10/27/22 20:45 Temperature 97 F L Temperature Source Temporal Pulse Rate 78 78 78 Respiratory Rate 18 16 16 Blood Pressure 167/96 H 118/79 118/79 Blood Pressure Mean 119 92 Pulse Ox 100 97 97 Oxygen Delivery Method Room Air Room Air Positive well nourished HEENT Reports moist mucous membranes normocephalic and atraumatic Eyes PERRL and EOMs intact bilaterally Resp normal respiratory effort and clear to auscultation bilaterally Auscultation: Negative for rales, rhonchi or wheezes Cardio regular rate and regular rhythm GI Palpation: tender RLQ Back/Spine no CVA tenderness Neuro CN's II-XII intact bilaterally and moves all extremities Sensorium / Orientation: alert Motor Exam: strength 5/5 throughout Psych mental status grossly normal and thought process normal Skin no wounds MDM MDM MDM Narrative Medical decision making narrative: Patient presenting with abdominal pain, fever, chills since yesterday. She had diarrhea all week. Differential includes diverticulitis, colitis, appendicitis, kidney stone, UTI, viral syndrome. CBC will be obtained to assess white blood cell count, hemoglobin, platelets. CMP to assess liver function, renal function, electrolytes, glucose. Lipase to assess for pancreatitis. Urinalysis to assess for UTI or occult blood. Patient given a liter normal saline, Toradol, Zofran. I did order stool studies but the patient has not been able to provide a sample yet. CBC and CMP unremarkable. Lipase negative. Urinalysis negative. I tried to obtain a stool study but the patient did not give enough stool to have examined. She states at this point she is willing to go home. Her blood work was reassuring since is normal. Return precautions were discussed. Wrote her for some Zofran as needed for his nausea. Impression: 1. Gastroenteritis Lab Data Attestation: I reviewed the patient's lab results. Labs: Laboratory Results - last 24 hr 10/27/22 10/27/22 18:05 18:20 WBC 5.7 RBC 4.25 Hgb 13.7 Hct 39.1 MCV 92.0 MCH 32.2 H MCHC 35.0 RDW Std Deviation 40.4 RDW Coeff of [place] 11.9 Plt Count 170 MPV 9.6 Immature Gran % (Auto) 0.400 Neut % (Auto) 59.4 Lymph % (Auto) 32.8 [place] % (Auto) 6.1 Eos % (Auto) 1.1 Baso % (Auto) 0.2 Absolute Neuts (auto) 3.4 Absolute Lymphs (auto) 1.87 Nucleated RBC % 0 Sodium 139 Potassium 3.6 Chloride 105 Carbon Dioxide 27.0 Anion Gap 7 BUN 8 Creatinine 0.61 Estim Creat Clear Calc 127.20 Est GFR (MDRD) Af Amer 142 Est GFR (MDRD) Non-Af 117 BUN/Creatinine Ratio 13.0 Glucose 92 Calcium 9.4 Total Bilirubin 0.70 AST 15 ALT 21 Alkaline Phosphatase 90 Total Protein 7.6 Albumin 4.1 Globulin 3.5 Albumin/Globulin Ratio 1.2 Lipase 42 Urine Color Yellow Urine Clarity Clear Urine pH 6.0 Ur Specific [place] 1.010 Urine Protein Negative Urine Glucose (UA) Normal Urine Ketones Negative Urine Occult Blood Negative Urine Nitrite Negative Urine Bilirubin Negative Urine Urobilinogen Normal Ur Leukocyte Esterase Negative Urine RBC 0 SEEN Urine WBC 0 SEEN Ur Squamous Epith Cells 0-5 SEEN Urine Bacteria 0 SEEN Urine Mucus 0 SEEN Urine Test Negative Discharge Plan Triage Chief Complaint: Abd Pain ED Provider: Jose Hogan Dx/Rx/DC Orders Instructions: ED Abdominal Pain Unkn Cause Fem, ED Diarrhea, Unknown Cause Prescriptions: New ondansetron 4 mg tablet,disintegrating 4 mg PO Q8H PRN PRN (Reason: Nausea) Qty: 14 0RF No Action multivitamin [Multiple Vitamins] 1 EACH tablet 1 ea PO DAILY Probiotic 3 billion cell Capsule 3,000 mmu cells PO DAILY Primary Care Provider: Isabella Finn Referrals: Isabella Finn, PERRY [Primary Care Provider] - Disposition Disposition: Home, Self Care Discharge Date/Time: 10/27/22 20:55
[2022-10-27 20:45] VITALS: BP 118/79; PULSE 78; RESP 16; O2SAT 97
== END 2022-10-27 20:55 | disposition home or self-care (01) ==
PROVIDERS: Emergency Provider Student in an Organized Health Care Education/Training Program; PCP Physician Assistant; Visit Provider Student in an Organized Health Care Education/Training Program
DX: K52.9 Noninfective gastroenteritis and colitis, unspecified (principal)
CPT/HCPCS: 80053; 81001; 81025; 83690; 85025; 87811; 96361; 96374; 96375; 99283; J7030; A4216; J2405

== ENCOUNTER → 2024-10-03 | Outpatient (CLI) | payer OTHER, SELFPAY ==
[2024-10-03 12:18] LABS: Hematocrit 41.2 % (37-47); Hemoglobin 13.4 g/dL (12.0-15.0); Immature Granulocytes Count 0.030 X10^3/uL (0.0-0.0); Mean Corp Hgb Conc 32.5 g/dL (32-36); Mean Corpuscular Volume 95.2 fL (81-99); Mean Platelet Vol. 9.8 fl (6.2-12.0); NRBC Flagged by Analyzer 0 % (0-5); Platelet Count 193 K/mm3 (150-450); RBC Distribution Width CV 12.3 % (11.6-14.6); RBC Distribution Width SD 43.3 fl (35.1-43.9); Red Blood Count 4.33 M/mm3 (4.2-5.4); White Blood Count 4.7 K/mm3 (4.4-11.0)
[2024-10-03 13:09] LABS: Ferritin 63 ng/mL (22-378)
[2024-10-03 14:22] LABS: Iron 74 ug/dL (50-170)
[2024-10-03 15:27] LABS: Iron Binding Capacity,Total 374 ug/dL (250-450); Iron Binding Capacity,Unsat 300 ug/dL (228-428)
== END | disposition home or self-care (01) ==
LOC: BWCLAB 11:38
PROVIDERS: PCP Physician Assistant; Visit Provider Obstetrics & Gynecology
DX: R23.8 Other skin changes (principal)
CPT/HCPCS: 36415; 82728; 83540; 83550; 85025